=== PATIENT | female | born 1970 | race Two or more races ===

== ENCOUNTER 2016-10-12 06:59 | Emergency (ER) | payer SELFPAY ==
[~2016-10-12] VITALS: Ht 162.6 cm; Wt 80.7 kg
--- NOTE | 2016-10-12 07:24 | PHYS DOC ---
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 She describes the pain as achy and moderate 8 of 10 that is not improving with Motrin. She said the pain began as a slight discomfort that is progressively gotten worse it is constant in the right lower quadrant. It is worse with walking and movement. It is not affected by food. She denies any nausea, vomiting, diarrhea or UTI symptoms. She denies any radiation to her back her back pain. She's had subjective fevers and chills at home with decreased appetite. She denies trauma or prior symptoms of the same magnitude. She also denies any recent travel outside the country or recent antibiotic use. Review of Systems Review of Systems Constitutional: She has complained of fevers and chills subjectively Eyes: Denies change in visual acuity, redness, or eye pain [] HENT: Denies nasal congestion or sore throat [] Respiratory: Denies cough or shortness of breath [] Cardiovascular: No additional information not addressed in HPI [] GI: She has complained of, pain without, nausea, vomiting, bloody stools or diarrhea [] : Denies dysuria or hematuria [] Musculoskeletal: Denies back pain or joint pain [] Integument: Denies rash or skin lesions [] Neurologic: Denies headache, focal weakness or sensory changes [] Endocrine: Denies polyuria or polydipsia [] Current Medications Current Medications Current Medications Medications (Trade) Dose Ordered Sig/Sierra Start Time Stop Time Status Last Admin Dose Admin Hydromorphone HCl (Dilaudid) 1 mg PRN Q15MIN PRN 10/12/16 07:30 10/13/16 07:29 10/12/16 07:33 1 MG Info (Do NOT chart on this entry -- for MONITORING) 1 each PRN DAILY PRN 10/12/16 08:45 10/14/16 08:44 Iohexol (Omnipaque 300 Mg/ml) 75 ml 1X ONCE 10/12/16 08:45 10/12/16 08:46 DC 10/12/16 08:47 75 ML Ondansetron HCl (Zofran) 4 mg 1X ONCE 10/12/16 07:30 10/12/16 07:31 DC 10/12/16 07:32 4 MG Sodium Chloride (Normal Saline Flush) 10 ml QSHIFT PRN 10/12/16 07:30 10/12/16 07:32 10 ML Allergies Allergies Allergies Coded Allergies Type Severity Reaction Last Updated Verified No Known Drug Allergies 10/12/16 No Physical Exam Physical Exam Vital signs evaluated within normal limits. Constitutional: Well developed, well nourished, no acute distress, non-toxic appearance. [] HENT: Normocephalic, atraumatic, bilateral external ears normal, oropharynx moist, no oral exudates, nose normal. [] Eyes: PERRLA, EOMI, conjunctiva normal, no discharge. [] Neck: Normal range of motion, no tenderness, supple, no stridor. [] Cardiovascular:Heart rate regular rhythm, no murmur [] Lungs & Thorax: Bilateral breath sounds clear to auscultation [] Abdomen: Patient does have tenderness to the right lower quadrant with out Rovsing sign, heeltap or voluntary guarding. Patient has McBurney's point tenderness to palpation. Is no Stokes sign no Merlos Owens sign and no obvious pulsatile mass. Skin: Warm, dry, no erythema, no rash. [] Back: No tenderness, no CVA tenderness. [] Extremities: No tenderness, no cyanosis, no clubbing, ROM intact, no edema. [] Neurologic: Alert and oriented X 3, normal motor function, normal sensory function, no focal deficits noted. [] Psychologic: Affect normal, judgement normal, mood normal. [] Current Patient Data Vital Signs Vital Signs Date Time Temp Pulse Resp B/P (MAP) Pulse Ox O2 Delivery O2 Flow Rate FiO2 10/12/16 07:58 73 19 124/64 (84) 98 Room Air 10/12/16 07:05 98.6 98.6 Lab Values Laboratory Tests Test 10/12/16 06:26 10/12/16 07:15 10/12/16 07:30 POC Urine HCG, Qualitative Hcg negative (Negative) Urine Collection Type Unknown Urine Color Yellow Urine Clarity Clear Urine pH 6.5 Urine Specific [place] >=1.030 Urine Protein 30 mg/dL (NEG-TRACE) Urine Glucose (UA) Negative mg/dL (NEG) Urine Ketones (Stick) 40 mg/dL (NEG) Urine Blood Trace (NEG) Urine Nitrite Negative (NEG) Urine Bilirubin Negative (NEG) Urine Urobilinogen Dipstick 1.0 mg/dL (0.2 mg/dL) Urine Leukocyte Esterase Small (NEG) Urine RBC Occ /HPF (0-2) Urine WBC 1-4 /HPF (0-4) Urine Squamous Epithelial Cells Few /LPF Urine Bacteria 0 /HPF (0-FEW) Urine Mucus Mod /LPF White Blood Count 14.0 x10^3/uL (4.0-11.0) H Red Blood Count 4.32 x10^6/uL (3.50-5.40) Hemoglobin 9.6 g/dL (12.0-15.5) L Hematocrit 30.7 % (36.0-47.0) L Mean Corpuscular Volume 71 fL (79-100) L Mean Corpuscular Hemoglobin 22 pg (25-35) L Mean Corpuscular Hemoglobin Concent 31 g/dL (31-37) Red Cell Distribution Width 19.4 % (11.5-14.5) H Platelet Count 279 x10^3/uL (140-400) Neutrophils (%) (Auto) 87 % (31-73) H Lymphocytes (%) (Auto) 5 % (24-48) L Monocytes (%) (Auto) 7 % (0-9) Eosinophils (%) (Auto) 0 % (0-3) Basophils (%) (Auto) 0 % (0-3) Neutrophils # (Auto) 12.2 x10^3uL (1.8-7.7) H Lymphocytes # (Auto) 0.7 x10^3/uL (1.0-4.8) L Monocytes # (Auto) 1.0 x10^3/uL (0.0-1.1) Eosinophils # (Auto) 0.0 x10^3/uL (0.0-0.7) Basophils # (Auto) 0.0 x10^3/uL (0.0-0.2) Platelet Estimate Pending Sodium Level 139 mmol/L (136-145) Potassium Level 3.5 mmol/L (3.5-5.1) Chloride Level 103 mmol/L (98-107) Carbon Dioxide Level 28 mmol/L (21-32) Anion Gap 8 (6-14) Blood Urea Nitrogen 10 mg/dL (7-20) Creatinine 0.5 mg/dL (0.6-1.0) L Estimated GFR (Cockcroft-Gault) 132.8 BUN/Creatinine Ratio 20 (6-20) Glucose Level 118 mg/dL (70-99) H Calcium Level 8.8 mg/dL (8.5-10.1) Total Bilirubin 0.6 mg/dL (0.2-1.0) Aspartate Amino Transferase (AST) 19 U/L (15-37) Alanine Aminotransferase (ALT) 14 U/L (14-59) Alkaline Phosphatase 112 U/L (46-116) Total Protein 8.0 g/dL (6.4-8.2) Albumin 3.6 g/dL (3.4-5.0) Albumin/Globulin Ratio 0.8 (1.0-1.7) L Lipase 61 U/L (73-393) L Laboratory Tests 10/12/16 07:30 Laboratory Tests 10/12/16 07:30 EKG EKG [] Radiology/Procedures Radiology/Procedures [] Course & Med Decision Making Course & Med Decision Making Pertinent Labs and Imaging studies reviewed. (See chart for details) Plan upon arrival at 7:20 AM differential diagnosis includes tubal ectopic as well as other intra-abdominal catastrophes or appendicitis, diverticulitis, ovarian torsion, ovarian cyst, small bowel obstruction and other intra-abdominal surgical issues. She will also be provided a liter of fluids, antiemetics and pain medications for control of her pain. [] Time is now 8:30Patient tells me that their symptoms given during CC are improved. sHe says her pain is now 2 out of 10. We are still waiting for the CT of the abdomen and pelvis to be completed. She is white blood cell count is elevated to 14,000 and otherwise her labs are unremarkable. Including a urinalysis lipase and the rest of her CMP. Time is now 8:[address] abdomen and pelvis is return read by radiology as normal looking appendix prominent right ovary with possible small hemorrhagic cyst. There is no significant free fluid in the abdomen. Patient's pain is under better control her H&H is nice and stable there is no other acute finding in the abdominal wall. Patient and I and family discussed these findings. She is feeling much more calm 1 her pain is only 1 of 0-10) now. 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 Impression: Abdominal pain, right ovarian cyst. Disposition: Follow-up with her PCP for continued management of her right ovarian cyst. And her pain control. She's been given precautions about returning in case she develops any near syncope, increased abdominal pain, or abdominal distention which may indicate increased bleeding from the right ovarian cyst. Dragon Disclaimer Dragon Disclaimer This electronic medical record was generated, in whole or in part, using a voice recognition dictation system. Departure Departure Impression: Primary Impression: Abdominal pain Additional Impression: Right ovarian cyst Disposition: HOME, SELF-CARE Condition: IMPROVED Referrals: NON,STAFF (PCP) Patient Instructions: Ovarian Cyst Additional Instructions: Please follow-up with your PROGRAM ELIGIBILITY SPECIALIST in 24-48 hours if symptoms continue. Please return if he have any abdominal distention increasing abdominal pain or questions or concerns might have about your care. I would advise that you follow -up with your primary care doctor to see that if perhaps -control may help reduce this duration of symptoms you are experiencing. Scripts Naproxen (NAPROSYN) 500 Mg Tablet 1 TAB PO BID, #14 TAB 1 Refill Prov: MOLLY MARCANO MD 10/12/16 Hydrocodone Bit/Acetaminophen (HYDROCODONE-APAP 5-325 ) 1 Each Tablet 1-2 TAB PO PRN Q6HRS Y for PAIN for 5 Days, #10 TAB 0 Refills Prov: MOLLY MARCAON MD 10/12/16 Problem Qualifiers MOLLY MARCANO MD Oct 12, 2016 07:24
[2016-10-12] MEDS ORDERED: ONDANSETRON PF 4 MG/2 ML VIAL. IV ONE (07:30)
[2016-10-12] MEDS ORDERED: IV NORMAL SALINE 1000ML BAG 1,000 ML IV SCH (07:30)
[2016-10-12] MEDS ORDERED: HYDROmorphone 2 MG/ML VIAL IV/SQ PRN (07:30)
[2016-10-12] MEDS ORDERED: 0.9 % SODIUM CHLORIDE 10 ML DISP.SYRIN. IV PRN (07:30)
[2016-10-12 07:35] LABS: BILIRUBIN,URINE NEGATIVE (NEG); GLUCOSE,URINE NEGATIVE (NEG); NITRITE,URINE NEGATIVE (NEG); PH,URINE 6.5; PROTEIN,URINE 30 mg/dL (NEG-TRACE)
[2016-10-12 07:54] LABS: CALCIUM 8.8 mg/dL (8.5-10.1); CREATININE 0.5 mg/dL (0.6-1.0); GFR 132.8; POTASSIUM 3.5 mmol/L (3.5-5.1)
[2016-10-12 07:57] LABS: BACTERIA,URINE 0 /HPF (0-FEW); RBC,URINE OCC /HPF (0-2); SQUAMOUS EPITHELIAL CELL,UR FEW /LPF
[2016-10-12 07:58] VITALS: BP 124/64
[2016-10-12 08:00] LABS: ALBUMIN 3.6 g/dL (3.4-5.0); ALBUMIN/GLOBULIN RATIO 0.8 (1.0-1.7); TOTAL BILIRUBIN 0.6 mg/dL (0.2-1.0)
[2016-10-12 08:05] LABS: BASO % 0 % (0-3); EOS % 0 % (0-3); HEMATOCRIT 30.7 % (36.0-47.0); HEMOGLOBIN 9.6 g/dL (12.0-15.5); LYMPH # 0.7 x10^3/uL (1.0-4.8); LYMPH % 5 % (24-48); MEAN CORPUSCULAR HEMOGLOBIN 22 pg (25-35); MEAN CORPUSCULAR HGB CONC 31 g/dL (31-37); MEAN CORPUSCULAR VOLUME 71 fL (79-100); MONO % 7 % (0-9); NEUT % 87 % (31-73); PLATELET COUNT 279 x10^3/uL (140-400); RED BLOOD COUNT 4.32 x10^6/uL (3.50-5.40); RED CELL DISTRIBUTION WIDTH 19.4 % (11.5-14.5)
[2016-10-12] MEDS ORDERED: IOHEXOL 300 MG/ML 75 ML VIAL IV ONE (08:45)
[2016-10-12] MEDS ORDERED: CONTRAST GIVEN MC PRN (08:45)
--- NOTE | 2016-10-12 08:46 | RAD ---
One or more of the following individualized dose reduction techniques were utilized for this examination: 1. Automated exposure control 2. Adjustment of the mA and/or kV according to patient size 3. Use of iterative reconstruction technique CT abdomen and pelvis with contrast History: Right lower quadrant pain CT scan of the abdomen and pelvis was done using 75 mL Omnipaque 300 contrast. There is mild atelectasis in the lung bases without infiltrates. There is a calcified granuloma on the left. A liver lesion is not identified. Spleen and adrenal glands are normal. Pancreas is normal. There is no mass or hydronephrosis and the kidneys. There is no bowel obstruction or ascites or adenopathy. Appendix is normal. Uterus is mildly enlarged with a focus of enhancement, possible uterine leiomyoma. Left ovary appears normal. The right ovary is prominent with a trace of fluid about the right ovary, hemorrhagic cyst is possible, pelvic ultrasound could be of benefit. Impression: 1. Appendix is normal. 2. Prominent right ovary with possible hemorrhagic cyst. 3. No other acute finding in the abdomen or pelvis.
[2016-10-12] MEDS ORDERED: HYDR-2758 PO (09:00)
[2016-10-12] MEDS ORDERED: NAPR500T PO (09:00)
[2016-10-12 09:11] LABS: % EOS 1 % (0-5)
[2016-10-12 09:12] LABS: ANISOCYTOSIS SLIGHT; HYPOCHROMIA MOD; MICROCYTOSIS PRESENT; PLT ESTIMATE ADEQUATE (ADEQUATE)
--- NOTE | 2016-10-12 11:32 | EKG ---
[facility] [address] [place] [address] Test Date: 2016-10-12 Test Time: 07:28:47 Pat Name: ELLIE VAZQUEZ Department: Room: Gender: F Manager Front Office: RUBÉN : 1970 Requested By: MOLLY MARCANO Order Number: [id number] Reading MD: Measurements Intervals [place] Rate: 79 P: 31 UT: 146 QRS: 39 QRSD: 86 T: 39 QT: 368 QTc: 428 Interpretive Statements SINUS RHYTHM NO SPECIFIC ECG ABNORMALITIES RI6.01 No previous ECG available for comparison
== END 2016-10-12 09:14 | disposition home or self-care (01) ==
LOC: ER 06:59
DX: N83.201 Unspecified ovarian cyst, right side (principal); D64.9 Anemia, unspecified
CPT/HCPCS: 36415; 74177; 80053; 81001; 81025; 83690; 85007; 85027; 87086; 93005; 96361; 96374; 96375; 99285; J1170; J2405; J7030; Q9967